=== PATIENT | female | born 2000 | race Caucasian/White ===

== ENCOUNTER 2025-02-04 09:26 | Emergency (ER) | payer OTHER, SELFPAY ==
--- NOTE | ~2025-02-04 | XR_ITS ---
EXAM/ PROCEDURE: XR elbow LT 2V - 02/04/2025 14:30 CDT HISTORY: 24 years old Female with POST REDUCTION COMPARISON: None available TECHNIQUE: Two view(s) FINDINGS/ IMPRESSION: Normal alignment. No dislocation. Fracture of the lateral epicondyle is again seen. Previously questioned fracture of the olecranon pro cess is not visualized on current examination. Reviewed, dictated and finalized at location A.
--- NOTE | ~2025-02-04 | XR_ITS ---
EXAM/ PROCEDURE: XR elbow LT min 3V - 02/04/2025 11:55 CDT HISTORY: 24 years old Female with POST REDUCTION COMPARISON: None available TECHNIQUE: Three view(s) FINDINGS/ IMPRESSION: Acute displaced fracture of lateral epicondyle of the humerus and olecranon process of the ulna. Disl ocation of radius and ulna at the elbow joint. Surrounding soft tissue tissue injury. Reviewed, dictated and finalized at location A.
--- NOTE | ~2025-02-04 | XR_ITS ---
EXAM/ PROCEDURE: XR elbow LT min 3V - 02/04/2025 10:02 CDT HISTORY: 24 years old Female with injury; pt stated tripped over cat this morning fell on lt COMPARISON: None available TECHNIQUE: Three view(s) FINDINGS/ IMPRESSION: Acute displaced fracture of the olecranon process. Medial dislocation of the radius and ulna at the e lbow joint. Surrounding soft tissue injury. Reviewed, dictated and finalized at location A.
[2025-02-04 09:36] VITALS: BP 139/92; PULSE 86; RESP 16; TEMP 36.9; O2SAT 99
--- NOTE | 2025-02-04 09:40 | PC.NURSE ---
Ice and pillow provide for comfort
--- OUTSIDE RECORDS SUMMARY | 2025-02-04 09:41 | XMS_ITS | Continuity of Care Document ---
Author Organization [facility] Address [address] [place] [address] [place] [address] Phone Care Team Providers Care Clothing Sales Assistant Name Role Phone Zoran Pope MD Unavailable Unavailable Allergies, Adverse Reactions, Alerts Substance Reaction Status Criticality PENICILLIN Active No Information Medications Medication Instructions Dosage Effective Dates (start - stop) Status Comments Lamictal 100 mg tablet take 1 tablet by oral route every day 100 MG - Active Procedures Procedure Date OFFICE/OUTPATIENT VISIT, EST OFFICE/OUTPATIENT VISIT, EST OFFICE/OUTPATIENT VISIT, EST PREV VISIT, NEW, AGE 18-39 Advance Directives Directive Yes / No Effective Date File Name No Information Encounters Encounter Description Practice Location Reason(s) For Visit Diagnoses Date Provider Providers Copied on Encounter OFFICE/OUTPA TIENT VISIT, EST [facility], [address] [place], [place], [id number], [place] tel:[phone] [facility] weight gain1 (chief complaint) mood swings1 (chief complaint) Abnormal weight gainGeneralized Anxiety Disorder 5 Niko Meehan. [address] [place], [place], [address] , [place]. tel:[phone] OFFICE/OUTPA TIENT VISIT, EST [facility], [address] [place], [place], [id number], [place] tel:[phone] [facility] weight gain1 (chief complaint) mood swings1 (chief complaint) Abnormal weight gainGeneralized Anxiety Disorder 5 Niko Meehan. [address], [place], [place], [address] , [place]. tel:[phone] OFFICE/OUTPA TIENT VISIT, EST [facility], [address] [place], [place], [address], [place] tel:[phone] [facility] ear pain1 (chief complaint) anxiety1 (chief complaint) Acute sinusitisGeneralize d Anxiety Disorder 5 Niko Meehan. [address], [place], [place], [address] , [place]. tel:[phone] PREV VISIT, NEW, AGE 18-39 [facility], [address] [place], [place], [address], [place] tel:[phone] [facility] physical (chief complaint) Encounter for general adult medical examination without abnormal findings 4 Niko Meehan. [address], [place], [place], [address] , [place]. tel:[phone] Family History Family Member Type Diagnosis Age At Onset Brother Problem Alive and well Mother Problem Thyroid disorder Father Problem Alive and well Payers Payer name Insurance type [facility] [id number] Social History Type Description Quantity Date Captured Comments Alcohol Use Details social > 5 glasses weekly 025 Caffeine Use Details Unknown Tobacco Use Status Smoker Smoking Status Current every day smoker Sex Female Vital Signs Date / Time: Height Weight BMI Pulse Rate Blood Pressure Temperature Respiratory Rate Body Surface Area Head Circumference BMI percentile Pulse Ox Inhaled Ox 2:24 PM 66.00 in 208.20 lbs 33.6 0 kg/m eter (2) 95 /min 120/70 mm[Hg] 97.7 F 16 /min Chief Complaint And Reason For Visit From encounter dated '11/20/2024 14:20'. weight gain1 (chief complaint). Description: Pt has been gaining weight gradually Pt has not done lab yet. Pt has not been physically active mood swings1 (chief complaint). Description: Pt has anxiety and depression with mood swings Pt doing well with lamictal 50 mg but she feels that she can benefit from higher dose. Pt denies any suicidal or homicidal thought Plan Of Treatment Date Type Action Status Referral Ordered: Psychiatry (related to Encounter for general adult medical examination without abnormal findings) ordered Referral Ordered: Referrals: Psychiatry. Evaluate and treat ordered Appointment Jolynn Parisi BOOKED History Of Present Illness Encounter Date Complaint History Of Prese nt Illness weight gain1 Pt has been gain ing weight gradually Pt has not done lab yet. Pt has not been physically active mood swings1 Pt has anxiety a nd depression with mood swings Pt doing well with lamictal 50 mg but she feels that she can benefit from higher dose. Pt denies any suicidal or homicidal thought weight gain1 Pt gained some w eight recently Pt has been eating poorly .Pt is not very physically active mood swings1 Pt has mild anxi ety and depression with mood swings Pt could not tolerate zoloft . Pt tried lamictal and she is feeling much better. Pt states that her mood is very stable and she has much better mood as well .Pt denies any rash or any side effects .Pt denies any suicidal or homicidal thought Pt denies any crying spells .Pt states that she is functioning much better now ear pain1 Pt c/o acute ons et of sinus congestion, mild vertigo, sinus headache,, right ear pain since one week ago pt has mild dry cough pt denies any fever, chill Pt denies any sob. anxiety1 Pt has chronic a nxiety and depression with mood swings. Pt could not tolerate zoloft, which made her very aggressive. Pt no longer sees psychiatrist Pt denies any suicidal or homicidal thought Pt denies any crying spells. physical Pt needs annual physical. Pt has severe mood swings with highs and lows on 50-50 basis. Pt denies any delusional disorder. Pt states that sometime she feels very depressed and even suicidal and sometimes she feels on top of the world. Pt feels very emotional labile and volatile. pt also suffers from PDSD. pt is seeing a therapy for counseling who recommended Edward Adan who she met yesterday via virtual visit Pt was started on zoloft 25 mg but she has not picked up yet. Pt currently denies any suicidal or homicidal thought. Pt denies any crying spells. She needs insurance referral for Edward adan, who is a psychiatry [employer]ER from [place], [place] Instructions Date Instruction Additional Infor kylee No Information Assessments Type Assessment Date assessment Abnormal weight gain assessment Generalized Anxiety Disorder November Mental Status Date Cognitive Assessment Orientation - [place] ed to time, place, person, situation.
[2025-02-04 11:25] VITALS: BP 126/90; PULSE 80; RESP 14; O2SAT 99
--- NOTE | 2025-02-04 11:48 | ED.UPPEXIN ---
HPI - Extremity Injury (Upper) General Chief Complaint: Extremity Injury, Upper Stated Complaint: fall, L elbow injury Time Seen by Provider: 02/04/25 11:35 Source: patient Mode of arrival: ambulatory Limitations: no limitations History of Present Illness HPI narrative: 24 YEARS OLD WHITE FEMALE, TRIPPED ON HER CAT AND FELL, GROUND LEVEL FALL LANDED ON THE LEFT ELBOW. PRIOR TO ARRIVAL, SHE DENIES OTHER INJURIES. PATIENT IS HEALTHY OTHERWISE. Related Data Allergies Allergy/AdvReac Type Severity Reaction Status Date / Time Penicillins Allergy Unknown Unknown Verified 02/04/25 09:29 Review of Systems Review of Systems: All systems reviewed & are unremarkable except as noted in HPI and below Exam Narrative: GENERAL APPEARANCE: WELL-DEVELOPED, WELL-NOURISHED SKIN: NORMAL COLOR HEAD: NORMOCEPHALIC, NONTRAUMATIC EYES: CLEAR CONJUNCTIVA ENT: OROPHARYNX NORMAL, EARS NORMAL, NOSE NORMAL NECK: SUPPLE, NONTENDER CHEST AND RESPIRATORY: AIRWAY PATENT, NO RESPIRATORY DISTRESS, NO ACCESSORY MUSCLE USE HEART: REGULAR RATE/RHYTHM ABDOMEN: SOFT, NONTENDER, NO ORGANOMEGALY, QUIET BOWEL SOUNDS VASCULAR: NORMAL PERIPHERAL PULSES, NORMAL CAPILLARY REFILL. MUSCULOSKELETAL: LEFT ELBOW EXAM SHOWED DEFORMITY, DIFFUSE TENDERNESS, SEVERE LIMITED RANGE OF MOTION NEUROLOGIC: ALERT AND ORIENTED ?3, HVAC ENGINEERING TECHNICIAN IS NORMAL TESTED, NO GROSS MOTOR DEFICIT Course Consultations Consultation #1: DR LIEBERMAN TRANSFERRED TO [facility] Date: 02/04/25 Consultation #2: DR HECTOR ED PHYSICIAN, [facility] WHO ACCEPTED PATIENT TRANSFER Date: 02/04/25 Time: 15:56 Vital Signs Vital signs: Vital Signs Temperature 36.9 C 02/04/25 09:36 Pulse Rate 86 02/04/25 09:36 Respiratory Rate 16 02/04/25 09:36 Blood Pressure 139/92 H 02/04/25 09:36 Pulse Oximetry 99 02/04/25 09:36 Temperature 36.3 C L 02/04/25 12:58 Pulse Rate 80 02/04/25 14:18 Respiratory Rate 16 02/04/25 14:18 Blood Pressure 132/80 02/04/25 14:18 Pulse Oximetry 98 02/04/25 14:18 Procedures Orthopedic Joint Reduction Joint #1: Orthopedic Joint Reduction Date: 02/04/25 Time Out Performed: Yes (15) Side: left Joint Reduction Location: elbow Analgesia: none Pre-Procedure Neuro Vascular Exam: normal Technique used: traction/counter-traction and direct manipulation Post-reduction neuro exam: intact Post-reduction vascular: intact Post Reduction X-Ray Obtained: Yes Post Reduction X-Ray Results: reduced Splint Applied: Yes Patient Tolerated Procedure: well MDM - Extremity Injury (Upper) MDM Narrative Medical decision making narrative: GROUND LEVEL FALL, LEFT ELBOW, X-RAY SHOWING DISLOCATION FRACTURE, ELBOW REDUCED, DR. GEIGER CRACKED Ash REQUESTED TO TRANSFER PATIENT TO [facility] FOR FURTHER MANAGEMENT PATIENT DECLINED TRANSFER BY AMBULANCE AND WOULD LIKE TO GO BY PRIVATE CAR. Differential Diagnosis Differential diagnosis: Likely fracture of humerus and other (ELBOW DISLOCATION) Imaging Data Radiologist's impression: ACUTE DISPLACED FRACTURE OF THE OLECRANON PROCESS. MEDIAL DISLOCATION OF THE RADIUS AND ULNA ON A AT THE ELBOW JOINT. FRACTURE OF THE LATERAL EPICONDYLE IS AGAIN SEEN PREVIOUSLY QUESTIONED FRACTURE OF THE OLECRANON PROCESS IS NOT VISUALIZED ON CURRENT EXAMINATION, NORMAL ALIGNMENT NO DISLOCATION. Critical Care Time Critical Care Time Critical Care Time: No Discharge Plan Discharge Clinical Impression: Closed fracture of left elbow, Dislocation of left elbow Patient Disposition: Acute Care Hospital Condition: Stable Additional Instructions: TRANSFERRED TO [facility] Patient Language: [place] Follow-up/Referrals: Rony Hernandez MD [Primary Care Provider] -
--- OUTSIDE RECORDS SUMMARY | 2025-02-04 11:48 | XMS_ITS | Continuity of Care Document ---
Author Organization [facility] Address [address] [place] [address] Phone Care Team Providers Care Picture Hanger Name Role Phone Zoran Pope MD Unavailable [...] Copied on Encounter OFFICE/OUTPA TIENT VISIT, EST [facility], [address] [place], [id number], [place] tel:[phone] [facility] weight gain1 (chief complaint) mood swings1 (chief complaint) Abnormal weight gainGeneralized Anxiety Disorder 5 Niko Meehan. [address], [address] , [place]. tel:[phone] OFFICE/OUTPA TIENT VISIT, EST [facility], [address] [place], [id number], [place] tel:[phone] [facility] weight gain1 (chief complaint) mood swings1 (chief complaint) Abnormal weight gainGeneralized Anxiety Disorder 5 Niko Meehan. [address], [place], [place], [address] , [place]. tel:[phone] OFFICE/OUTPA TIENT VISIT, EST [facility], [address] [place], [place], [address], [place] tel:[phone] [facility] ear pain1 (chief complaint) anxiety1 (chief complaint) Acute sinusitisGeneralize d Anxiety Disorder 5 Niko Meehan. [address], [place], [place], [address] , [place]. tel:[phone] PREV VISIT, NEW, AGE 18-39 [facility], [address] [place], [place], [id number], [place] tel:[phone] [facility] physical (chief complaint) Encounter for general adult medical examination without abnormal findings 4 Niko Meehan. [address], [place], [place], [address] , [place]. tel:[phone] Family History Family Member Type Diagnosis Age At Onset Brother Problem Alive and well Mother Problem Thyroid disorder Father Problem Alive and well Payers Payer name Insurance type [facility] [id number] Social History Type Description Quantity Date Captured [...] for Edward adan, who is a psychiatry [employer] from [place], [place] Instructions Date Instruction Additional Infor kylee No Information Assessments Type Assessment Date assessment Abnormal weight gain assessment Generalized Anxiety Disorder November Mental Status Date Cognitive Assessment Orientation - [place] ed to time, place, person, situation.
[2025-02-04] MEDS: ONDANSETRON HCL ODT 4 MG TABLET (11:56)
[2025-02-04] MEDS: HYDROcodone/acetaminophen (*CRX) 5-325 MG TABLET 1 TAB (11:56)
[2025-02-04 12:58] VITALS: BP 130/74; PULSE 80; RESP 16; TEMP 36.3; O2SAT 99
[2025-02-04] MEDS: ONDANSETRON INJ 4 MG/2 ML VIAL IV PUSH (14:09)
[2025-02-04] MEDS: HYDROmorphone HCL INJ (*CRX) 2 MG/ML VIAL 0.5 MG IV PUSH (14:10)
[2025-02-04 14:18] VITALS: BP 132/80; PULSE 80; RESP 16; O2SAT 98
[2025-02-04 16:05] VITALS: BP 127/81; PULSE 84; RESP 16; O2SAT 98
== END 2025-02-04 15:30 | disposition short-term general hospital (02) ==
PROVIDERS: Emergency Provider Emergency Medicine; PCP Pediatrics
DX: S52.022A Displaced fracture of olecranon process without intraarticular extension of left ulna, initial encounter for closed fracture (principal); S42.432A Displaced fracture (avulsion) of lateral epicondyle of left humerus, initial encounter for closed fracture; W01.0XXA Fall on same level from slipping, tripping and stumbling without subsequent striking against object, initial encounter
CPT/HCPCS: 24600; 73070; 73080; 96374; 96375; 99285; A9270; J1171; J2405